=== PATIENT | male | born 1985 | race Hispanic/Latino ===

== ENCOUNTER 2016-08-01 16:12 | Emergency (ER) | payer OTHER ==
[2016-08-01 16:21] VITALS: PULSE 99; RESP 17; TEMP 98.5; O2SAT 98
[2016-08-01 16:24] VITALS: BP 150/85
--- NOTE | 2016-08-01 16:48 | ED PDOC ---
HPI: General Adult Time Seen by Provider: 08/01/16 16:46 Chief Complaint (Nursing): Weakness/Neurological Deficit Chief Complaint (Provider): left arm numbness/chest pain History Per: Patient (31 y/o male here with left chest dull pressure waxing and waning x 1 second duration x 2 hours. Patient states he has had ongoing numbness in fifth and fourth digitis of left hand x 2 months and has noted left lateral arm achiness. Denies any sob. Denies any h/o smoking/htn/diabetes/ hld. Has family h/o CA in maternal grandfather age 50s. No recent flights.) Past Medical History Reviewed: Historical Data, Nursing Documentation, Vital Signs Vital Signs: Last Vital Signs Temp 98.5 F 08/01/16 16:18 Pulse 99 H 08/01/16 16:18 Resp 17 08/01/16 16:18 BP 150/85 08/01/16 16:18 Pulse Ox 98 08/01/16 16:49 - Family History Family History: States: [place] (maternal grandfather age 50s) - Social History Current smoker - smoking cessation education provided: No Ex-Smoker (has not smoked in the last 12 months): No Alcohol: Social Drugs: Denies - Home Medications Home Medications: Ambulatory Orders Medication Instructions Recorded Methylprednisolone [Medrol Dose 4 mg PO DAILY #21 tab 08/01/16 Pack (21 tabs)] - Allergies Allergies/Adverse Reactions: Allergies Allergy/AdvReac Type Severity Reaction Status Date / Time No Known Allergies Allergy Verified 08/01/16 16:30 Review of Systems ROS Statement: Except As Marked, All Systems Reviewed And Found Negative Physical Exam - Reviewed Nursing Documentation Reviewed: Yes Vital Signs Reviewed: Yes - Physical Exam Appears: Positive for: Well, Non-toxic, No Acute Distress Head Exam: Positive for: ATRAUMATIC, NORMAL INSPECTION, NORMOCEPHALIC Skin: Positive for: Normal Color, Warm, DRY Eye Exam: Positive for: EOMI, Normal appearance, PERRL ENT: Positive for: Normal ENT Inspection Neck: Positive for: Normal, Painless ROM Cardiovascular/Chest: Positive for: Regular Rate, Rhythm, Chest Non Tender Respiratory: Positive for: CNT, Normal Breath Sounds Gastrointestinal/Abdominal: Positive for: Normal Exam, Bowel Sounds, Soft Back: Positive for: Normal Inspection Extremity: Positive for: Normal ROM, Other (5/5 grasp. 5/5 bicep flexion; 5/5 tricep extension. Denies any loss of sensation along lateral aspect of arm.) Neurologic/Psych: Positive for: Alert, Oriented - Laboratory Results Result Diagrams: 08/01/16 17:00 08/01/16 17:00 - ECG ECG Rhythm: Positive for: Sinus Rhythm Interpretation Of ECG: nsr 90bpm; no ectopy; no acute changes O2 Sat by Pulse Oximetry: 98 - Radiology X-Ray: Viewed By Dc X-Ray Interpretation: No Acute Disease - Progress ED Course And Treament: Toradol 15 mg iv x 1 dose Disposition - Clinical Impression Clinical Impression: Paresthesia, Atypical chest pain - Patient ED Disposition Is Patient to be Admitted: No - Disposition Referrals: Kenroy Moody MD [Staff Provider] - Disposition: Routine/Home Disposition Time: 18:02 Condition: FAIR Prescriptions: Methylprednisolone [Medrol Dose Pack (21 tabs)] 4 mg PO DAILY #21 tab Instructions: Paresthesia (ED), Chest Pain (ED)
[2016-08-01 17:08] LABS: BASO % 0.6 % (0.0-2.0); EOS # 0.1 K/uL (0.0-0.7); EOS % 2.1 % (0.0-4.0); HEMATOCRIT 43.2 % (35.0-51.0); LYMPH # 1.1 K/uL (1.0-4.3); LYMPH % 16.5 % (20.0-40.0); MEAN CELL VOLUME 91.6 fl (80.0-94.0); MEAN CORPUSCULAR HEMOGLOBIN 30.9 pg (27.0-31.0); MEAN CORPUSCULAR HGB CONC 33.8 g/dL (33.0-37.0); MEAN PLATELET VOLUME 10.2 fl (7.2-11.7); MONO # 0.5 K/uL (0.0-0.8); MONO % 7.8 % (0.0-10.0); NEUT # 4.9 K/uL (1.8-7.0); RED CELL DISTRIBUTION WIDTH 12.8 % (11.5-14.5); WHITE BLOOD COUNT 6.7 K/uL (4.8-10.8)
[2016-08-01 17:15] LABS: ALB/GLOB RATIO 1.6 (1.0-2.1); ALKALINE PHOSPHATASE 44 U/L (38-126); ALT/SGPT 44 U/L (21-72); AST/SGOT 37 U/L (17-59); BLOOD UREA NITROGEN 14 mg/dl (9-20); CALCIUM 9.6 mg/dL (8.4-10.2); CARBON DIOXIDE 28 mmol/L (22-30); CHLORIDE 101 mmol/L (98-107); GFR AFRICAN-AMERICAN > 60; GLUCOSE,RANDOM 109 mg/dL (75-110); MAGNESIUM 1.6 MG/DL (1.6-2.3); POTASSIUM 4.1 MMOL/L (3.6-5.0); SODIUM 140 mmol/l (132-148); TOTAL PROTEIN 7.8 G/DL (6.3-8.2)
[2016-08-01] MEDS ORDERED: Iohexol 240 (50 ml) ONE (18:10)
--- NOTE | 2016-08-02 07:59 | RAD ---
HISTORY: chest pain COMPARISON: No prior. TECHNIQUE: Chest PA and lateral FINDINGS: LUNGS: No active pulmonary disease. PLEURA: No significant pleural effusion identified. No pneumothorax apparent. CARDIOVASCULAR: Normal. OSSEOUS STRUCTURES: No significant abnormalities. VISUALIZED UPPER ABDOMEN: Normal. OTHER FINDINGS: None. IMPRESSION: No active disease.
--- NOTE | 2016-08-03 02:19 | CARD ---
APPROVED REPORT EKG Measurement Heart [id number] <Conclusion> Normal sinus rhythm Normal ECG
== END 2016-08-01 18:33 | disposition home or self-care (01) ==
LOC: H.ER 16:12
DX: R20.2 Paresthesia of skin (principal); R20.9 Unspecified disturbances of skin sensation; R07.89 Other chest pain; Z87.891 Personal history of nicotine dependence